=== PATIENT | male | born 1960 | race Caucasian/White ===

== ENCOUNTER 2017-01-15 07:00 | Inpatient (IN) | payer OTHER ==
[~2017-01-15] VITALS: Ht 172.7 cm; Wt 76.2 kg
--- NOTE | ~2017-01-15 | EKG ---
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: Yvan CABAN : 1960 Requested By: Domingo Scott Order Number: [id number] MD: Jose Maria Toledo Measurements Intervals [place] Rate: 105 P: 76 [place]: 154 QRS: 60 QRSD: 94 T: 40 QT: 344 QTc: 455 Interpretive Statements Sinus tachycardia Nonspecific ST segment abnormality Compared to ECG 01/15/2017 07:51:43 No significant change was found Electronically Signed On 01-16-2017 17:28:16 CDT by Jose Maria Toledo [email or web address] <ELECTRONICALLY SIGNED> By: Jose Maria Toledo MD, [facility] 01/16/17 1728 180 180 Jose Maria Toledo MD, [facility] /EPI
--- NOTE | ~2017-01-15 | O ---
[facility] [place] [address] OPERATIVE REPORT Name: ADDY MOJICA Room #: 439-P ADM IN M.R.#: [id number] Admission: 01/15/17 Attend Phys: Domingo Scott DO Discharge: Date of : 58 Report #: [id number] THIS REPORT FOR: //name// CC: Domingo MARTINEZJACKIE ANYA DATE OF SERVICE: 01/16/2017 PREOPERATIVE DIAGNOSIS: Left tibia fracture. POSTOPERATIVE DIAGNOSIS: Left tibia fracture. PROCEDURE: Intramedullary isauro stabilization, left tibia fracture. SURGEON: Eladio Vasquez MD INDICATIONS: This 56-year-old gentleman fell injuring the left tibia. X-rays confirmed a spiral fracture at the junction of the middle and distal thirds. We discussed treatment options and elected to go ahead with surgical repair. DESCRIPTION OF PROCEDURE: The patient was taken to the operating room where he was placed under general anesthesia. Prophylactic intravenous antibiotics were administered. He was positioned on the radiolucent table. C-arm was utilized to visualize the fracture. Tourniquet was inflated to 300 mmHg. An anterior longitudinal skin incision was made overlying the lateral border of the patellar tendon. This was extended down to the anterior surface of the tibia. An opening was created and a guidewire inserted. This was passed down the canal and across the fracture site bringing the tip of the guidewire down to the ankle level. This was measured at about 340 mm in length. I elected to use a 330 mm length isauro. The reamers were then used to ream the canal, gradually advancing to a size 11 reamer. A 10 mm diameter isauro was then selected. The Synthes tibial nail measuring 10 mm in diameter and 330 mm in length was selected. This was impacted down the canal bringing the proximal end below the cortical surface by about 5 mm and bringing the distal aspect of the isauro to a point about 1.5 cm above the ankle joint. The isauro seemed just fit nicely and the tibia reduced essentially anatomically. A proximal locking screw was placed from a medial to lateral direction using the outrigger guide. This seated nicely and appeared to be secure. Distal interlock screws were placed from medial to lateral using C-arm for guidance. Both screws seemed to have good purchase. The position, alignment and stability appeared to be satisfactory when viewed with multiple C-arm images. The several small incisions for screw insertion were irrigated and then closed with skin graham. The larger incision overlying the tibial tubercle and patellar tendon was closed using 2-0 Monocryl in the subcutaneous [address] [address] OPERATIVE REPORT Name: ADDY MOJICA Amanda Room #: 439-P [facility] IN ..#: [id number] Admission: 01/15/17 Attend Phys: Domingo Scott DO Discharge: Date of : 58 Report #: [id number] tissues and graham in the skin. A sterile dressing was applied. The patient was then awakened and returned to recovery room in good condition. <ELECTRONICALLY SIGNED> By: Eladio Vasquez MD 01/17/17 1454 1322 04 Eladio Vasquez MD /nt
--- NOTE | ~2017-01-15 | EKG ---
[address] [address] ELECTROCARDIOGRAM REPORT Name: ADDY MOJICA Room #: 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
[~2017-01-15 07:00] MED LIST: ALBUTEROL2.5 MG/0.5 INH; AMBIEN 5 MG TABL5 M1 PO; BISACODYL SUPP10 MG RE; CEPACOL SORE T1 EAC9 MM; CLOTRIMAZOLE 1%30 M1 TOP; COLACE100 MG PO; FLOMAX0.4 MG PO; FOSINOPRIL SODI40 M1 PO; GLUCOPHAGE1000 MG PO; GLUCOTROL5 MG PO; HYDROCODON-ACE1 EA12 PO; HYDROCODON-ACE1 EAC8 PO; IRON325 PO; MUCINEX TA600 MG/TA2 PO; NICOTINE TRANSD21 M1 TRANSDERM; NICOTINE1 EAC1 TRANSDERM; NORCO 5-325 TA1 EACH PO; NOVOLOG100 UNIT/1 SUBQ; OXYCONTIN10 M1 PO; PERCOCET PO; PRAVACHOL20 MG PO; REQUIP0.5 MG PO; SALINE NASAL SP30 ML NASAL; SENNA LAX8.6 MG PO; SPIRIVA INH; SYMBICORT160 MCG/4. INH; TYLENOL325 MG PO; VENTOLIN HFA 1818 GM INH; VISTARIL 25 MG25 M1 PO; VITAMIN C500 M1 PO; XARELTO10 MG PO; ZOLOFT50 MG PO
[2017-01-15 07:01] VITALS: BP 151/97
[2017-01-15 07:35] LABS: ABSOLUTE NEUTROPHILS 8.3 thou/uL (1.4-8.2); BASOPHILS 0.6 % (0.0-2.0); EOSINOPHILS 1.3 % (0.0-3.0); HEMATOCRIT 36.3 % (42.0-52.0); HEMOGLOBIN 12.8 gm/dL (14.0-18.0); LYMPHOCYTES 12.4 % (24.0-44.0); MCH 29.7 pg (26.0-34.0); MCHC 35.3 g/dL (28.0-37.0); MONOCYTES 6.8 % (1.0-8.0); PLATELET COUNT 212 thou/uL (150-400); POLYS 78.9 % (36.0-66.0); RBC 4.32 mil/uL (4.50-6.00); RDW 13.6 % (10.5-14.5); WBC 10.5 thou/uL (4.0-11.0)
[2017-01-15 07:41] LABS: MANUAL DIFF NO
[2017-01-15 08:01] LABS: URINE BILIRUBIN NEGATIVE (Negative); URINE BLOOD NEGATIVE (Negative); URINE COLOR YELLOW; URINE GLUCOSE-RANDOM* 3+ (Negative); URINE KETONES 1+ (Negative); URINE NITRITE NEGATIVE (Negative); URINE PROTEIN (DIPSTICK) NEGATIVE (Negative); URINE UROBILINOGEN 0.2 E.U./dl (0.2-1.0)
[2017-01-15 08:16] LABS: ANION GAP 11 mmol/L (7-16); BUN 14 mg/dL (7-18); CHLORIDE 100 mmol/L (98-107); CO2 24 mmol/L (21-32); CREATININE 1.1 mg/dL (0.7-1.3); GLUCOSE 400 mg/dL (74-106); POTASSIUM 3.8 mmol/L (3.5-5.1); SODIUM 135 mmol/L (136-145)
[2017-01-15 08:21] LABS: TROPONIN-I < 0.04 ng/mL (<0.04-0.07)
[2017-01-15 09:15] VITALS: BP 144/88
[2017-01-15 10:53] LABS: APTT 22.1 Seconds (24.5-32.8); PROTIME 10.2 Seconds (9.3-11.4)
[2017-01-15 11:30] VITALS: BP 151/78
[2017-01-15 16:00] VITALS: BP 140/83
[2017-01-15 20:00] VITALS: BP 131/94
[2017-01-16] VITALS (9 sets, daily range): BP systolic 109–164; BP diastolic 68–95
[2017-01-16 06:34] LABS: HEMATOCRIT 34.5 % (42.0-52.0); HEMOGLOBIN 12.2 gm/dL (14.0-18.0); MCH 29.7 pg (26.0-34.0); MCHC 35.3 g/dL (28.0-37.0); MCV 84.1 fL (80.0-100.0); RBC 4.1 mil/uL (4.50-6.00); RDW 13.3 % (10.5-14.5); WBC 8.1 thou/uL (4.0-11.0)
[2017-01-16 06:43] LABS: CALCIUM 8.6 mg/dL (8.5-10.1); CREATININE 0.8 mg/dL (0.7-1.3); POTASSIUM 3.6 mmol/L (3.5-5.1)
[2017-01-17 03:44] LABS: HEMATOCRIT 29.5 % (42.0-52.0); HEMOGLOBIN 10.5 gm/dL (14.0-18.0)
[2017-01-17 04:35] VITALS: BP 130/75
[2017-01-17 08:29] VITALS: BP 120/78
[2017-01-17 16:30] VITALS: BP 116/70
[2017-01-17 20:17] VITALS: BP 119/69
[2017-01-18 04:01] VITALS: BP 125/84
[2017-01-18 08:00] VITALS: BP 129/82
[2017-01-18] MEDS ORDERED: LANTUSSOLASTAR SUBQ (12:39)
== END 2017-01-18 16:28 | DRG 493 ==
LOC: ER 07:00 → 4S 08:43 → EROBS 08:43 → 4S 09:20
PROVIDERS: Emergency Medicine; Family Medicine; Orthopaedic Surgery
PROC: 0QSH06Z Reposition Left Tibia with Intramedullary Internal Fixation Device, Open Approach (ICD-10-PCS; principal; 2017-01-16)
DX: S82.202A Unspecified fracture of shaft of left tibia, initial encounter for closed fracture (principal); N17.9 Acute kidney failure, unspecified; H81.09 Meniere's disease, unspecified ear; I10 Essential (primary) hypertension; J44.9 Chronic obstructive pulmonary disease, unspecified; F32.9 Major depressive disorder, single episode, unspecified; K08.409 Partial loss of teeth, unspecified cause, unspecified class; R33.9 Retention of urine, unspecified; E11.65 Type 2 diabetes mellitus with hyperglycemia; S82.402A Unspecified fracture of shaft of left fibula, initial encounter for closed fracture; S82.401A Unspecified fracture of shaft of right fibula, initial encounter for closed fracture; Z87.891 Personal history of nicotine dependence; Z79.899 Other long term (current) drug therapy; Z91.041 Radiographic dye allergy status; W18.39XA Other fall on same level, initial encounter; Y93.89 Activity, other specified; Y92.89 Other specified places as the place of occurrence of the external cause; Y99.8 Other external cause status
CPT/HCPCS: 10100; 50010; 50101; 50386; 50417; 50635; 51412; 55430; 56525; 62110; 62900; 70005

== ENCOUNTER 2020-10-15 12:59 | Emergency (ER) | payer OTHER ==
[~2020-10-15] VITALS: Ht 172.7 cm; Wt 72.6 kg
[~2020-10-15 12:59] MED LIST changes: +LANTUSSOLASTAR SUBQ
[2020-10-15 13:27] LABS: URINE BILIRUBIN NEGATIVE (Negative); URINE BLOOD NEGATIVE (Negative); URINE CLARITY CLEAR; URINE COLOR YELLOW; URINE GLUCOSE-RANDOM* 3+ (Negative); URINE KETONES NEGATIVE (Negative); URINE LEUKOCYTES-REFLEX NEGATIVE (Negative); URINE NITRITE-REFLEX NEGATIVE (Negative); URINE PROTEIN (DIPSTICK) NEGATIVE (Negative); URINE SPECIFIC GRAVITY 1.015 (1.005-1.035); URINE UROBILINOGEN 0.2 E.U./dl (0.2-1.0)
[2020-10-15 13:31] LABS: ABSOLUTE NEUTROPHILS 3.5 thou/uL (1.4-8.2); BASOPHILS 0.4 % (0.0-2.0); EOSINOPHILS 5.8 % (0.0-3.0); HEMATOCRIT 31.8 % (42.0-52.0); HEMOGLOBIN 11.5 gm/dL (14.0-18.0); LYMPHOCYTES 28.1 % (24.0-44.0); MCH 30.7 pg (26.0-34.0); MCHC 36.2 g/dL (28.0-37.0); MCV 84.7 fL (80.0-100.0); MONOCYTES 8.6 % (1.0-8.0); PLATELET COUNT 260 thou/uL (150-400); POLYS 57.1 % (36.0-66.0); RBC 3.75 mil/uL (4.50-6.00); RDW 14.3 % (10.5-14.5); WBC 6.1 thou/uL (4.0-11.0)
[2020-10-15 13:38] LABS: CALCIUM 8.3 mg/dL (8.5-10.1); POTASSIUM 4.1 mmol/L (3.5-5.1)
[2020-10-15 13:44] LABS: ALBUMIN 3.5 g/dL (3.4-5.0); TOTAL BILIRUBIN 0.5 mg/dL (0.2-1.0); TOTAL PROTEIN 7.6 g/dL (6.4-8.2)
[2020-10-15 13:45] LABS: APTT 24.7 Seconds (24.5-32.8); INR 0.95; PROTIME 10.4 Seconds (9.3-11.4)
[2020-10-15] MEDS ORDERED: IBUPROFEN 600600 M1 PO (13:59)
[2020-10-15] MEDS ORDERED: SPIRIVA INH (14:00)
[2020-10-15] MEDS ORDERED: ASA81BEC PO (14:00)
[2020-10-15 15:46] VITALS: BP 140/94
== END 2020-10-15 15:46 | disposition home or self-care (01) ==
LOC: ER 12:59
PROVIDERS: Nurse Practitioner Family
DX: E11.65 Type 2 diabetes mellitus with hyperglycemia (principal); Z20.822 Contact with and (suspected) exposure to COVID-19; I10 Essential (primary) hypertension; J44.9 Chronic obstructive pulmonary disease, unspecified; Z91.041 Radiographic dye allergy status; Z79.899 Other long term (current) drug therapy; Z79.82 Long term (current) use of aspirin